=== PATIENT | male | born 1945 | race Caucasian/White ===

== ENCOUNTER 2019-06-13 16:34 | Emergency (ER) | payer OTHER ==
[2019-06-13 16:41] VITALS: BMI 25.4
--- NOTE | 2019-06-13 16:41 | PDOC ---
Rapid Medical Evaluation Time Seen by Provider: 06/13/19 16:36 Medical Evaluation: Allergies Allergy/AdvReac Type Severity Reaction Status Date / Time No Known Allergies Allergy Verified 07/19/12 02:08 06/13/19 16:39 This patient received a in-person evaluation in triage cc/HPI: dizziness today but reports nausea, vomiting and diarrhea 4 days ago. Denies chest pain or shortness of breath PE: NAD clear bilateral lungs abdomen soft, hyperactive bowels orders: ekg, labs ordered This patient will proceed to ED for further evaluation Discharge Disposition - Diagnosis Dizziness - Discharge Dispostion Disposition: AGAINST MEDICAL ADVICE Condition at time of disposition: Stable - Referrals Referrals: John Burnham MD [Primary Care Provider] - - Patient Instructions Printed Discharge Instructions: Vertigo Additional Instructions: You came into the emergency department for dizziness, nausea, and vomiting. Lab work and EKG did not indicate acute pathology. The CT scan of your head was without acute pathology. As discussed you may have undiagnosed illness or medical diagnosis that if left untreated can lead to multiple complications including, but not limited to permanent disability and . Should you reconsider you should return to the emergency department for evaluation. Follow up with your primary care physician within 72 hours. Call and make an appointment to further evaluate your symptoms. Your workup is not complete until you do so. Immediate medical attention is required if you have: any chest pain, palpitations, shortness of breath, severe headaches, changes in vision, episodes of fainting, focal numbness or weakness, any severe abdominal pain, any black tarry stool, or any new or concerning symptoms. If you think you are having an emergency, call for emergency medical services or present to the emergency department right away. - Post Discharge Activity
[2019-06-13 17:07] LABS: BASO % 0.3 % (0-2.0); EOS % 1.7 % (0-4.5); HEMATOCRIT 37.7 % (35.4-49); HEMOGLOBIN 12.5 GM/dL (11.7-16.9); LYMPH % 21.4 % (8-40); MCH 25.1 pg (25.7-33.7); MCHC 33.1 g/dl (32.0-35.9); MEAN CELL VOLUME 75.8 fl (80-96); MEAN PLT VOLUME 8.8 fl (7.5-11.1); NEUT % 68.6 % (42.8-82.8); PLATELET COUNT 164 K/MM3 (134-434); RBC 4.97 M/mm3 (4.00-5.60); RDW 19.6 % (11.9-15.9); WHITE BLOOD COUNT 4.8 K/mm3 (4.0-10.0)
--- NOTE | 2019-06-13 17:25 | PDOC ---
Attending Attestation - Resident Resident Name: Katerin Aleman - HPI HPI: 06/13/19 18:14 Pt presents to the ED complaining of the acute onset of vertigo 5 days ago. Symptoms resolved then recurred again. Vertigo is positional and made worse by going from lying position to sitting or standing. Denies difficulty walking or other neurologic complaints. - Physicial Exam PE: 06/13/19 18:51 Agree with resident exam. Patient is alert and oriented x 3. CN grossly intact. Ambulatory with normal gait. 06/13/19 18:51 - Medical Decision Making 06/13/19 18:53 Pt presents to the ED complaining of vertigo. Cerebellar exam is normal and patient is able to ambulate, but given age and lack of improvement with meclizine, I am concerned for central vertigo. Will admit to medicine for MRI.
[2019-06-13 17:31] LABS: ALBUMIN 3.9 g/dl (3.4-5.0); BILIRUBIN,TOTAL 0.2 mg/dL (0.2-1); BLOOD UREA NITROGEN 18.4 mg/dL (7-18); CALCIUM 9.3 mg/dL (8.5-10.1); CREATININE 1.1 mg/dL (0.55-1.3); POTASSIUM 4.7 mmol/L (3.5-5.1); TOT PROT 6.8 g/dl (6.4-8.2)
[2019-06-13] MEDS ORDERED: MECLIZINE HCL 25 MG TABLET (FP) PO ONE (17:47)
[2019-06-13] MEDS ORDERED: MECLIZINE HCL 25 MG TABLET (FP) ONE (18:08)
--- NOTE | 2019-06-13 18:40 | PDOC ---
History of Present Illness - General Chief Complaint: Pain Stated Complaint: DIZZY Time Seen by Provider: 06/13/19 16:36 - History of Present Illness Initial Comments: HPI: 74yo M with PMH of HTN, DM, BPH presenting with dizziness. Patient states he had his first episode of self-spinning dizziness four days ago such that whenever he moved his head he would feel worse. This has never happened before, but he states: "my mother had it." Three days ago, patient suffered two episodes of bilious nonbloody vomit. Two days ago patient had about four episodes of yellow nonbloody diarrhea. Yesterday, patient felt "good." Patient presents today because he felt dizzy yet again. Denies focal weakness. Has not eaten today due to low appetite but is now hungry and requesting food. No fevers , chills, chest pain, or shortness of breath. PCP: Dr. John Burnham ROS: Constitutional: no fever, no chills HEENT: no throat pain, no dysphagia Cardiovascular: no chest pain, no palpitations Respiratory: no cough, no shortness of breath Gastrointestinal: +vomiting, +diarrhea Genitourinary: no dysuria, no hematuria Musculoskeletal: no myalgia, no arthralgia Skin: no rash, no itching Neurologic: no headache, +dizziness PE: General: Awake, alert, and fully oriented, in no acute distress Head: No signs of trauma Eyes: EOMI, sclera anicteric ENT: Moist mucus membranes Neck: Normal ROM, supple Lungs: Lungs clear, Normal breath sounds Cardio: Regular rhythm, S1 and S2 present Abdomen: Soft, nontender. No guarding, no rebound, no masses Extremities: Normal range of motion, Distal pulses present SKIN: Warm, Dry, normal turgor Neurologic: Cranial nerves II through XII grossly intact. Normal speech ED Course/MDM: DDX including but not limited to dehydration, electrolyte abnormality, vertigo ( peripheral vs central), stroke Labs, EKG Meclizine CT Head EKG: rate 63, QTc 413, NSR CBC WBC 4.8 K/mm3 (4.0-10.0) 06/13/19 16:55 RBC 4.97 M/mm3 (4.00-5.60) 06/13/19 16:55 Hgb 12.5 GM/dL (11.7-16.9) 06/13/19 16:55 Hct 37.7 % (35.4-49) 06/13/19 16:55 MCV 75.8 fl (80-96) L 06/13/19 16:55 MCH 25.1 pg (25.7-33.7) L 06/13/19 16:55 MCHC 33.1 g/dl (32.0-35.9) 06/13/19 16:55 RDW 19.6 % (11.9-15.9) H 06/13/19 16:55 Plt Count 164 K/MM3 (134-434) 06/13/19 16:55 MPV 8.8 fl (7.5-11.1) 06/13/19 16:55 Absolute Neuts (auto) 3.3 K/mm3 (1.5-8.0) 06/13/19 16:55 Neutrophils % 68.6 % (42.8-82.8) 06/13/19 16:55 Lymphocytes % 21.4 % (8-40) D 06/13/19 16:55 Monocytes % 8.0 % (3.8-10.2) D 06/13/19 16:55 Eosinophils % 1.7 % (0-4.5) 06/13/19 16:55 Basophils % 0.3 % (0-2.0) 06/13/19 16:55 Nucleated RBC % 0 % (0-0) 06/13/19 16:55 No leukocytosis or anemia CMP Sodium 138 mmol/L (136-145) 06/13/19 16:55 Potassium 4.7 mmol/L (3.5-5.1) 06/13/19 16:55 Chloride 106 mmol/L (98-107) 06/13/19 16:55 Carbon Dioxide 25 mmol/L (21-32) 06/13/19 16:55 Anion Gap 7 MMOL/L (8-16) L 06/13/19 16:55 BUN 18.4 mg/dL (7-18) H 06/13/19 16:55 Creatinine 1.1 mg/dL (0.55-1.3) 06/13/19 16:55 Est GFR (CKD-EPI)AfAm 76.24 06/13/19 16:55 Est GFR (CKD-EPI)NonAf 65.78 06/13/19 16:55 Random Glucose 214 mg/dL (74-106) H 06/13/19 16:55 Calcium 9.3 mg/dL (8.5-10.1) 06/13/19 16:55 Total Bilirubin 0.2 mg/dL (0.2-1) 06/13/19 16:55 AST 16 U/L (15-37) 06/13/19 16:55 ALT 34 U/L (13-61) 06/13/19 16:55 Alkaline Phosphatase 72 U/L (45-117) 06/13/19 16:55 Total Protein 6.8 g/dl (6.4-8.2) 06/13/19 16:55 Albumin 3.9 g/dl (3.4-5.0) 06/13/19 16:55 Electrolytes unremarkable No transaminitis Cr normal CT report per radiology: "EXAM#: TYPE/EXAM: RESULT: [id number] CT/HEAD CT WITHOUT CONTRAST Cranial CT without contrast Clinical information: dizziness No intracranial hemorrhage is seen. There is no discrete infarct within the limitations of CT. No extra-axial fluid collection is noted. Mild periventricular chronic microvascular ischemic changes are seen. Incidental note is made of a stable 0.3 cm dural based calcification along the left occipital convexity possibly representing a completely calcified meningioma. There is no associated mass effect or edema. Involutional changes are noted with mild ventricular dilatation. The calvarium appears intact. Impression: No CT evidence of acute intracranial pathology. There has been no definite interval change in comparison to a prior CT exam of 12/31/2018. Reported By: Paul Lantigua MD 06/13/19 1837 " 06/13/19 18:42 Recommended admission for neurologic evaluation and MRI. Patient is of sound mind and has capacity to make decisions. Benefits/risks explained to patient and they voiced understanding. Patient decided to leave against medical advice. Signed AMA form. 06/13/19 19:14 Past History - Past Medical History Allergies/Adverse Reactions: Allergies Allergy/AdvReac Type Severity Reaction Status Date / Time No Known Allergies Allergy Verified 06/13/19 18:44 Home Medications: Ambulatory Orders Omeprazole [Prilosec (RX)] 20 mg PO DAILY 07/19/12 metFORMIN XR [Glucophage Xr] 500 mg PO BID 07/19/12 Atorvastatin Calcium 40 mg PO DAILY 06/13/19 Tamsulosin HCl [Flomax] 0.4 mg PO BID 06/13/19 COPD: No Diabetes: Yes HTN: Yes - Immunization History Immunization Up to Date: Yes - Psycho Social/Smoking Cessation Hx Smoking Status: No Smoking History: Never smoked Number of Cigarettes Smoked Daily: 0 Information on smoking cessation initiated: No Hx Alcohol Use: No Drug/Substance Use Hx: No *Physical Exam - Vital Signs Last Vital Signs Temp Pulse Resp BP Pulse Ox 97.3 F L 60 18 168/51 L 100 06/13/19 16:38 06/13/19 16:38 06/13/19 16:38 06/13/19 16:38 06/13/19 16:38 ED Treatment Course - LABORATORY CBC & Chemistry Diagram: 06/13/19 16:55 06/13/19 16:55 - ADDITIONAL ORDERS Additional order review: Laboratory Results 06/13/19 16:55 Sodium 138 Potassium 4.7 Chloride 106 Carbon Dioxide 25 Anion Gap 7 L BUN 18.4 H Creatinine 1.1 Est GFR (CKD-EPI)AfAm 76.24 Est GFR (CKD-EPI)NonAf 65.78 Random Glucose 214 H Calcium 9.3 Total Bilirubin 0.2 AST 16 ALT 34 Alkaline Phosphatase 72 Total Protein 6.8 Albumin 3.9 06/13/19 16:55 RBC 4.97 MCV 75.8 L MCHC 33.1 RDW 19.6 H MPV 8.8 Neutrophils % 68.6 Lymphocytes % 21.4 D Monocytes % 8.0 D Eosinophils % 1.7 Basophils % 0.3 - RADIOLOGY Radiology Studies Ordered: Category Date Time Status HEAD CT WITHOUT CONTRAST [CT] Stat CT Scan 06/13/19 17:47 Taken - Medications Given in the ED: ED Medications Discontinued Medications Generic Name Dose Route Start Last Admin Trade Name Freq PRN Reason Stop Dose Admin Meclizine HCl 25 mg 06/13/19 17:47 06/13/19 18:11 Antivert - PO 06/13/19 17:48 25 mg ONCE ONE Administration Discharge - Discharge Information Problems reviewed: Yes Clinical Impression/Diagnosis: Dizziness Condition: Stable Disposition: AGAINST MEDICAL ADVICE - Follow up/Referral Referrals: John Burnham MD [Primary Care Provider] - - Patient Discharge Instructions Patient Printed Discharge Instructions: Vertigo Additional Instructions: You came into the emergency department for dizziness, nausea, and vomiting. Lab work and EKG did not indicate acute pathology. The CT scan of your head was without acute pathology. As discussed you may have undiagnosed illness or medical diagnosis that if left untreated can lead to multiple complications including, but not limited to permanent disability and . Should you reconsider you should return to the emergency department for evaluation. Follow up with your primary care physician within 72 hours. Call and make an appointment to further evaluate your symptoms. Your workup is not complete until you do so. Immediate medical attention is required if you have: any chest pain, palpitations, shortness of breath, severe headaches, changes in vision, episodes of fainting, focal numbness or weakness, any severe abdominal pain, any black tarry stool, or any new or concerning symptoms. If you think you are having an emergency, call for emergency medical services or present to the emergency department right away. - Post Discharge Activity
[2019-06-13 19:37] VITALS: BP 153/69; PULSE 66; TEMP 97.6
--- NOTE | 2019-06-14 09:45 | EKG ---
Test Reason : Blood Pressure : / mmHG Vent. Rate : 063 BPM Atrial Rate : 063 BPM P-R Int : 152 ms QRS Dur : 082 ms QT Int : 404 ms P-R-T Axes : 022 016 045 degrees QTc Int : 413 ms NORMAL SINUS RHYTHM NORMAL ECG WHEN COMPARED WITH ECG OF 20-JUN-1997 13:59, NO SIGNIFICANT CHANGE WAS FOUND Confirmed by MD Pennington Daniel ([id number]) on 06/14/2019 9:45:03 AM Referred By: Confirmed By:Jonn Pennington MD
== END 2019-06-13 19:25 | disposition left against medical advice (07) ==
LOC: JER 16:34
DX: R42 Dizziness and giddiness (principal); E11.9 Type 2 diabetes mellitus without complications; I10 Essential (primary) hypertension
CPT/HCPCS: 36415; 70450-TC; 80053; 83690; 85025; 93005; 93010; 99283-25

== ENCOUNTER 2019-09-06 12:45 | Emergency (ER) | payer OTHER ==
--- NOTE | 2019-09-06 12:57 | PDOC ---
Rapid Medical Evaluation Chief Complaint: Pain Time Seen by Provider: 09/06/19 12:54 Medical Evaluation: Allergies Allergy/AdvReac Type Severity Reaction Status Date / Time No Known Allergies Allergy Verified 06/13/19 18:44 09/06/19 12:55 I have performed a brief in-person evaluation of this patient. The patient presents with a chief complaint of: abdominal pain LUQ started this morning. Pt saw Dr. Becker yesterday. No n/v/d Pertinent physical exam findings: stable. Moderate distress. LUQ abd tenderness to palpation I have ordered the following: saline lock, labs, ekg The patient will proceed to the ED for further evaluation Discharge Disposition - Diagnosis Abdominal pain - Referrals - Patient Instructions - Post Discharge Activity
[2019-09-06 12:58] VITALS: BP 125/80; PULSE 79; TEMP 98.1; BMI 26.4
[2019-09-06] MEDS ORDERED: LIDOCAINE VISCOUS 2% ORAL/TOP 20 ML UNIT-DOSE CUP MM ONE (13:35)
[2019-09-06] MEDS ORDERED: MAG HYDROX/AL HYDROX/SIMETH 30 ML UNIT-DOSE CUP PO ONE (13:35)
[2019-09-06] MEDS ORDERED: FAMOTIDINE 20 MG/50 ML IVPB 20 MG/50 ML MG IVPB ONE ×2 (13:35→13:46)
[2019-09-06] MEDS ORDERED: ACETAMINOPHEN 1000 MG/100 ML VIAL (NON FORMULARY) IVPB ONE (13:35)
--- NOTE | 2019-09-06 13:36 | PDOC ---
History of Present Illness - General Chief Complaint: Pain Stated Complaint: ABD PAIN Time Seen by Provider: 09/06/19 12:54 - History of Present Illness Initial Comments: Trey Schafer is a 74yo man with a PMH of NIDDM, BPH, HTN (? not on meds), chronic constipation who presents with LUQ pain today. He has had similar pain in the past. He states that he sees Dr Becker for constipation and occasional stomach pain. He was told that he had a "stomach infection" and given several medications, but he only took one of the meds at home. He is not sure which medication he took. This morning, Mr Schafer reports that he had the upper abdominal pain, but he was able to eat breakfast without any difficulty. He is not sure whether eating changed the pain at all. When the pain persisted, he tried taking a Nexium without any relief. He denies any nausea, vomiting, chest pain, difficulty breathing, or associated sweating. He denies any lower abdominal pain. He endorses constipation, but he has been taking Linzess and had a bowel movement yesterday and today. Past History - Past Medical History Allergies/Adverse Reactions: Allergies Allergy/AdvReac Type Severity Reaction Status Date / Time No Known Allergies Allergy Verified 09/06/19 12:58 Home Medications: Ambulatory Orders Omeprazole [Prilosec (RX)] 20 mg PO DAILY 07/19/12 metFORMIN XR [Glucophage Xr] 500 mg PO BID 07/19/12 Atorvastatin Calcium 40 mg PO DAILY 06/13/19 Tamsulosin HCl [Flomax] 0.4 mg PO BID 06/13/19 COPD: No Diabetes: Yes HTN: Yes - Immunization History Immunization Up to Date: Yes - Psycho Social/Smoking Cessation Hx Smoking Status: No Smoking History: Never smoked Have you smoked in the past 12 months: No Number of Cigarettes Smoked Daily: 0 Information on smoking cessation initiated: No Hx Alcohol Use: No Drug/Substance Use Hx: No Review of Systems - Review of Systems Comments:: General: No fevers, no chills, no weight or appetite change, no malaise HEENT: No changes in vision, no changes in hearing, no congestion, no sore throat CV: No chest pain, no palpitations, no LE edema Pulm: No SOB, no cough, no wheezing GI: See HPI : No frequency, no urgency, no dysuria Musc: No back pain, no joint swelling, no recent injury Skin: No rash, no lesions, no erythema Endo: No excessive thirst, no heat/cold intolerance Heme: No unusual bruising or bleeding, no swollen glands Neuro: No syncope, no numbness/tingling, no focal weakness Vasc: No claudication Psych: No recent change in mood, no SI or HI *Physical Exam - Vital Signs Last Vital Signs Temp Pulse Resp BP Pulse Ox 98.1 F 79 17 125/80 100 09/06/19 12:53 09/06/19 12:53 09/06/19 12:53 09/06/19 12:53 09/06/19 12:53 - Physical Exam General: Comfortable, no acute distress HEENT: PERRL, EOMI, MMM, voice normal, normal neck ROM Cards: RRR, no murmur appreciated Pulm: Comfortable on room air, clear to auscultation bilaterally Abd: Soft, nondistended. Minimal LUQ and epigastric TTP. No rigidity, no guarding. Ext: Atraumatic. No LE edema. ROM intact. WWP Skin: Normal color, no rashes or lesions Neuro: A&Ox3, CN grossly intact, normal speech, motor/sensory grossly intact and symmetric Psych: Mood appropriate to situation ED Treatment Course - LABORATORY CBC & Chemistry Diagram: 09/06/19 13:30 09/06/19 13:30 Medical Decision Making - Medical Decision Making 09/06/19 13:36 Trey Schafer is a 74yo man with a PMH of NIDDM, BPH, HTN (? not on meds), chron ic constipation who presents with LUQ pain today. He has been able to eat and does not remember whether eating changed his pain. He has been having regular bowel movements. - Most likely gastritis; pt report of a stomach infection may indicate he was diagnosed with h pylori but did not complete his treatment. Ddx also includes pancreatitis, less likely cholecystitis/cholelithiasis given location of pain. Unlikely to be obstruction, diverticulitis, appendicitis as pt has no associated symptoms and pain is in LUQ only. - Given age, h/o DM, will evaluate for ACS - Labs ordered in E, sent - EKG, trop added - Maalox/lidocaine, famotidine, acetaminophen for symptoms 09/06/19 15:14 - Labs reviewed. No concerning abnormalities appreciated - Pt re-examined. Still reporting severe abdominal pain - Will give additional pain medication - CT abd/pelvis given no improvement 09/06/19 17:01 - CT w/ nonobstructing stone in the lower pole of the left kidney, 3mm - No abnormalities in the location of the pt's pain. He is now requesting to eat. - Will d/c patient home. Strongly advised to continue home medications prescribed by Dr Becker; should follow up with GI within the next 3-4 days. Pt s tates understanding and agreement. Discussed with Dr Douglas Wade PGY2 Discharge - Discharge Information Problems reviewed: Yes Clinical Impression/Diagnosis: Abdominal pain Qualifiers: Abdominal location: left upper quadrant Qualified Code(s): R10.12 - Left upper quadrant pain Condition: Stable Disposition: HOME - Admission No - Follow up/Referral Referrals: John Burnham MD [Primary Care Provider] - Jad Becker MD [Staff Physician] - - Patient Discharge Instructions Patient Printed Discharge Instructions: DI for Peptic Ulcer Additional Instructions: Discharge Instructions; You were seen in the emergency department for abdominal pain. Your blood tests and CT scan did not show any concerning findings. Your pain is most likely due to gastric ulcers or gastritis. Continue to take the pantoprazole that was prescribed for you at home. You may also use Maalox or Mylanta as needed for continued symptoms. Follow up with your GI doctor, Dr Becker, within the next 3-4 days if your symptoms continue. Seek immediate care for any worsening symptoms, inability to eat, dehydration, lack of urination, or any other medical emergency. Instrucciones de descarga; Lo vieron en el departamento de emergencias por dolor abdominal. Rosalie anlisis de robbin y tomografa computarizada no mostraron hallazgos preocupantes. Coleman dolor probablemente se deba a lceras gstricas o gastritis. Contine tomando el pantoprazol que le recetaron en coleman casa. Tambin puede usar Maalox o Mylanta segn sea necesario para los sntomas continuos. Almas un seguimiento con coleman mdico GI, Dr. Becker, dentro de los prximos 3-4 riggs si rosalie sntomas continan. Busque atencin inmediata para cualquier sntoma que empeore, incapacidad para comer, deshidratacin, falta de miccin o cualquier otra emergencia mdica. Print Language: KOREAN - Post Discharge Activity
[2019-09-06] MEDS ORDERED: ACETAMINOPHEN INJECTION 100 ML IVPB ONE (13:45)
[2019-09-06] MEDS ORDERED: LIDOCAINE VISCOUS 2% ORAL/TOP 20 ML UNIT-DOSE CUP ONE (13:45)
[2019-09-06] MEDS ORDERED: MAG HYDROX/AL HYDROX/SIMETH 30 ML UNIT-DOSE CUP ONE (13:46)
[2019-09-06 13:53] LABS: BASO % 0.4 % (0-2.0); EOS % 3.1 % (0-4.5); HEMATOCRIT 41.5 % (35.4-49); HEMOGLOBIN 13.8 GM/dL (11.7-16.9); LYMPH % 25.5 % (8-40); MCH 25.8 pg (25.7-33.7); MCHC 33.2 g/dl (32.0-35.9); MEAN CELL VOLUME 77.7 fl (80-96); MONO % 5.8 % (3.8-10.2); NEUT % 65.2 % (42.8-82.8); PLATELET COUNT 150 K/MM3 (134-434); RBC 5.34 M/mm3 (4.00-5.60); RDW 16.2 % (11.9-15.9); WHITE BLOOD COUNT 5.2 K/mm3 (4.0-10.0)
[2019-09-06 14:22] LABS: ALBUMIN 4.2 g/dl (3.4-5.0); BILIRUBIN,TOTAL 0.3 mg/dL (0.2-1); CALCIUM 9.2 mg/dL (8.5-10.1); POTASSIUM 4.6 mmol/L (3.5-5.1); TOT PROT 7.9 g/dl (6.4-8.2)
--- NOTE | 2019-09-06 15:01 | PDOC ---
Documentation entered by Khanh Roca SCRIBE, acting as scribe for Latrell Cole MD. Latrell Cole MD: This documentation has been prepared by the Abelino restrepo Nirvannie, SCRIBE, under my direction and personally reviewed by me in its entirety. I confirm that the documentation accurately reflects all work, treatment, procedures, and medical decision making performed by me. Attending Attestation - Resident Resident Name: Buffy Wade - ED Attending Attestation I have performed the following: I have examined & evaluated the patient, The case was reviewed & discussed with the resident, I agree w/resident's findings & plan, Exceptions are as noted - HPI HPI: 09/06/19 13:54 The patient is a 74 year old male, with a significant past medical history of NIDDM, BPH, ?HTN, and chronic constipation who presents to the emergency department with 1 day of LUQ abdominal pain. He notes taking Nexium, without relief, prompting his arrival to the ED. As per patient, he has had similar episodes in the past which he has been evaluated with Dr. Becker for. Patient notes a history of unknown stomach infection which he was prescribed multiple unknown medications for and only took one at home. He denies any chest pain. Allergies: TAMMIE Primary Care Physician: Dr. Drew Burnham GI: Dr. Becker - Physicial Exam PE: 09/06/19 15:00 Vitals: Triage Vital signs reviewed General Appearance: No acute distress, well nourished well developed, Head: Atraumatic, Mild left upper quadrant tenderness to palpation no rebound no guarding cardiac: Regular rate and rhythym, no murmurs, no rubs, no gallops, Lungs: Clear to auscultation bilateral, good air movement bilaterally, Abdomen: Soft, non distended, normal bowel sounds, non tender to palpation Extremities: Full range of motion to all extremities, no cyanosis, clubbing, or edema Skin: Warm and dry, no rashes or lesions, no rash, no petechiae Psych: Normal mood, normal affect - Medical Decision Making 09/06/19 13:54 74 year old male, with a significant past medical history of NIDDM, BPH, ?HTN, and chronic constipation who presents to the emergency department with 1 day of LUQ abdominal pain. Plan is: CBC CMP Lipase Cardiac Profile EKG Ofirmev Pepcid Maalox Viscous Lidocaine 09/06/19 15:00 Well-appearing no apparent distress mild left upper quadrant pain chronic constipation being treated for presumed H. pylori? We will check labs GI cocktail observe and reassess no tenderness rebound or guarding on examination Labs CT unremarkable still with mild left upper quadrant pain likely gastritis or dyspepsia patient instructed to take [id number] Maalox and to follow-up with gastroenterology Findings, the need for follow-up and strict return instructions discussed with patient.
[2019-09-06] MEDS ORDERED: morphine CARPU-JECT 4 MG/1 ML DISP.SYRIN IVPUSH ONE (15:18)
[2019-09-06] MEDS ORDERED: morphine SULFATE 4 MG/ML VIAL ONE (15:28)
--- NOTE | 2019-09-07 11:14 | EKG ---
Test Reason : Blood Pressure : / mmHG Vent. Rate : 074 BPM Atrial Rate : 074 BPM P-R Int : 144 ms QRS Dur : 074 ms QT Int : 394 ms P-R-T Axes : 034 022 065 degrees QTc Int : 437 ms NORMAL SINUS RHYTHM NONSPECIFIC T WAVE ABNORMALITY ABNORMAL ECG WHEN COMPARED WITH ECG OF 13-JUN-2019 17:43, NONSPECIFIC T WAVE ABNORMALITY, WORSE IN LATERAL LEADS Confirmed by MD JORGE L, SHEILA ([id number]) on 09/07/2019 11:13:35 AM Referred By: Confirmed By:SHEILA COATS MD
== END 2019-09-06 17:47 | disposition home or self-care (01) ==
LOC: JER 12:45
PROC: 3E033GC Introduction of Other Therapeutic Substance into Peripheral Vein, Percutaneous Approach (ICD-10-PCS; principal; 2019-09-06)
PROC: 3E033NZ Introduction of Analgesics, Hypnotics, Sedatives into Peripheral Vein, Percutaneous Approach (ICD-10-PCS; 2019-09-06)
PROC: 3E033NZ Introduction of Analgesics, Hypnotics, Sedatives into Peripheral Vein, Percutaneous Approach (ICD-10-PCS; 2019-09-06)
DX: I10 Essential (primary) hypertension (principal); E11.9 Type 2 diabetes mellitus without complications; Z79.84 Long term (current) use of oral hypoglycemic drugs; N40.0 Benign prostatic hyperplasia without lower urinary tract symptoms; Z87.11 Personal history of peptic ulcer disease
CPT/HCPCS: 36415; 74177-TC; 80053; 82550; 83690; 84484; 85025; 93005; 93010; 96365; 96375; 99285-25; J0131; Q9967

== ENCOUNTER 2025-01-23 18:22 | Observation (INO) | payer MEDICARE, OTHER ==
[2025-01-23 19:12] VITALS: BMI 26.2
[2025-01-23 20:04] LABS: ABSOLUTE IMMATURE GRANULOCYTES 0.03 x10^3/uL (0.0-0.031); BASOPHILS # 0.03 x10^3/uL (0.01-0.08); EOSINOPHIL % 1.7 % (0.8-7.0); EOSINOPHILS # 0.10 x10^3/uL (0.04-0.54); MCHC 34.2 g/dl (32.3-36.5); MEAN CELL VOLUME 86.5 fl (79.0-92.2); MEAN PLT VOLUME 10.7 fl (9.4-12.4); MONOCYTE # 0.38 x10^3/uL (0.30-0.82); MONOCYTE % 6.3 % (5.3-12.2); RDW 13.1 % (12.2-16.6)
[2025-01-23 20:05] LABS: URINE APPEARANCE CLEAR; URINE BILIRUBIN NEGATIVE (NEGATIVE); URINE COLOR YELLOW; URINE GLUCOSE (UA) 3+ (NEGATIVE); URINE KETONE NEGATIVE (NEGATIVE); URINE LEUK ESTERASE NEGATIVE (NEGATIVE); URINE NITRITE NEGATIVE (NEGATIVE); URINE PROTEIN NEGATIVE (NEGATIVE); URINE UROBILINOGEN 0.2 mg/dL (0.2-1.0)
[2025-01-23 20:07] LABS: BG HCT 36.0 % (35.4-49); VENOUS BASE EXCESS -4.2 mmol/L (-2-2); VENOUS O2 SATURATION 96.9 % (70-80); VENOUS PCO2 31.5 mmHg (38-52); VENOUS PH 7.41 (7.310-7.410)
[2025-01-23 20:30] LABS: CO2 25.0 mmol/L (21-32); GLUCOSE,RANDOM 357.0 mg/dL (74-106)
[2025-01-23 20:33] LABS: CREATININE 1.0 mg/dL (0.55-1.3); SGOT/AST 11.0 U/L (15-37); SGPT/ALT 29.0 U/L (13-61)
[2025-01-23 20:34] LABS: TOT PROT 7.1 g/dl (6.4-8.2)
[2025-01-23 20:36] LABS: ALK PHOS 90.0 U/L (45-117)
[2025-01-23 21:22] LABS: HIV INTERPRETATION NEGATIVE (NEGATIVE)
[2025-01-23 21:23] LABS: HCV DIAGNOSTIC IN-HOUSE W/RFLX NON-REACTIVE (NONREACTIVE)
[2025-01-23] MEDS: LACTATED RINGERS SOLUTION 1000 ML INFUS.BAG IV ONE (23:05)
[2025-01-23] MEDS ORDERED: INSULIN ASPART SLIDING SCALE (NOVOLOG) 1 VIAL SQ ONE (23:42)
[2025-01-23] MEDS: INSULIN (NOVOLOG) ASPART 100 UNITS/ML 10ML VIAL SQ ONE (23:46)
[2025-01-24 00:44] LABS: LDL CHOLESTEROL (ONLY SJRH) 67.0 mg/dL (5-100)
[2025-01-24 01:45] LABS: COCAINE, UR NEGATIVE (NEGATIVE); URINE BARBITURATES NEGATIVE (NEGATIVE); URINE BENZODIAZEPINES NEGATIVE (NEGATIVE)
[2025-01-24 01:46] LABS: METHADONE, UR NEGATIVE (NEGATIVE); OPIATES, URI NEGATIVE (NEGATIVE); PHENCYCLIDINE,URINE NEGATIVE (NEGATIVE)
[2025-01-24 02:06] LABS: URINE AMPHETAMINES NEGATIVE (NEGATIVE)
[2025-01-24] MEDS: INSULIN ASPART SLIDING SCALE (NOVOLOG) 1 VIAL SQ SCH (06:10)
[2025-01-24 07:55] LABS: ABSOLUTE IMMATURE GRANULOCYTES 0.02 x10^3/uL (0.0-0.031); BASOPHILS # 0.02 x10^3/uL (0.01-0.08); EOSINOPHIL % 3.4 % (0.8-7.0); EOSINOPHILS # 0.17 x10^3/uL (0.04-0.54); MCHC 33.3 g/dl (32.3-36.5); MEAN CELL VOLUME 86.5 fl (79.0-92.2); MEAN PLT VOLUME 10.6 fl (9.4-12.4); MONOCYTE # 0.33 x10^3/uL (0.30-0.82); MONOCYTE % 6.5 % (5.3-12.2); RDW 13.0 % (12.2-16.6)
[2025-01-24 08:56] LABS: CO2 27.0 mmol/L (21-32); GLUCOSE,RANDOM 190.0 mg/dL (74-106)
[2025-01-24 08:59] LABS: CREATININE 0.7 mg/dL (0.55-1.3); SGOT/AST 13.0 U/L (15-37); SGPT/ALT 27.0 U/L (13-61)
[2025-01-24 09:01] LABS: TOT PROT 6.6 g/dl (6.4-8.2)
[2025-01-24 09:02] LABS: ALK PHOS 61.0 U/L (45-117)
[2025-01-24] MEDS: ENOXAPARIN NA (PORCINE) 40 MG/0.4 ML DISP.SYRIN SQ SCH (09:42)
[2025-01-24] MEDS: TAMSULOSIN HCL 0.4 MG CAP PO SCH (09:42)
[2025-01-24] MEDS: MEMANTINE HCL 5 MG TABLET (UD) PO SCH (09:42)
[2025-01-24] MEDS: ESCITALOPRAM OXALATE 10 MG TABLET PO SCH (12:42)
[2025-01-24] MEDS: INSULIN GLARGINE (LANTUS) 100 UNITS/ML UNITS SQ SCH (21:47)
[2025-01-24] MEDS: ROSUVASTATIN CA 20 MG TABLET PO SCH (21:47)
[2025-01-24] MEDS: DONEPEZIL HCL 5 MG TABLET (FP) PO SCH (22:17)
[2025-01-25] MEDS: EMPAGLIFLOZIN (JARDIANCE) 25 MG TABLET PO SCH (14:46)
[2025-01-25 18:20] VITALS: RESP 18
[2025-01-26 15:40] VITALS: BP 106/58; PULSE 81; TEMP 97.9
== END 2025-01-26 17:57 | disposition home health service (06) ==
LOC: JER 18:22 → JERBED 20:36 → J6W TELE 01-24 01:49
PROVIDERS: ADMIT Internal Medicine; ATTEND Internal Medicine
DX: R55 Syncope and collapse (principal); E11.65 Type 2 diabetes mellitus with hyperglycemia; R10.12 Left upper quadrant pain; G31.1 Senile degeneration of brain, not elsewhere classified; F02.80 Dementia in other diseases classified elsewhere, unspecified severity, without behavioral disturbance, psychotic disturbance, mood disturbance, and anxiety; Z87.891 Personal history of nicotine dependence; Z79.84 Long term (current) use of oral hypoglycemic drugs
CPT/HCPCS: 36415; 70450-TC; 71045-TC-FY; 80053; 80061; 80307; 81003; 82010; 82550; 82607; 82746; 82803; 82962; 83036; 83735; 84100; 84439; 84443; 84484; 85025; 86780; 86803; 87086; 87389; 93005; 93010; 93306-TC; 93880-TC; 95816; 96372; 97116-GP; 97162-GP; 99285-25; G0378